=== PATIENT | male | born 1960 | race Caucasian/White ===

== ENCOUNTER 2017-07-21 05:50 | Day surgery (SDC) | payer BC ==
[~2017-07-21] VITALS: Ht 193 cm; Wt 113.4 kg
[2017-07-21] MEDS ORDERED: LIDOCAINE/EPI 1% 1:100000 20 ML VIAL INJ ONE (05:51)
[2017-07-21] MEDS ORDERED: CEFAZOLIN 1 GM IVPB PREMIX 50 ML IV ONE (05:51)
[2017-07-21] MEDS ORDERED: KETOROLAC TROMETHAMINE 30 MG VIAL IVP ONE (05:51)
[2017-07-21] MEDS ORDERED: BACITRACIN ZINC 15 GM TOPICAL OINTMENT TP ONE (05:51)
[2017-07-21] MEDS ORDERED: KETAMINE HCL 500 MG/10 ML VIAL IVP ONE (05:51)
[2017-07-21] MEDS ORDERED: MIDAZOLAM HCL 5 MG/ML VIAL (VERSED) IV ONE (05:51)
[2017-07-21] MEDS ORDERED: KETAMINE HCL 500 MG/10 ML VIAL ONE (07:34)
[2017-07-21] MEDS ORDERED: LR 1,000 ML IV ONE (08:12)
[2017-07-21] MEDS ORDERED: ONDANSETRON HCL 4 MG/2 ML VIAL IVP PRN ×2 (08:15)
[2017-07-21] MEDS ORDERED: fentaNYL CITRATE/PF 100 MCG/2 ML AMP IVP PRN (08:15)
[2017-07-21] MEDS ORDERED: DIPHENHYDRAMINE INJ 50 MG/ML VIAL IVP PRN (08:15)
[2017-07-21] MEDS ORDERED: NALBUPHINE HCL 10 MG/ML AMP IVP PRN (08:15)
[2017-07-21] MEDS ORDERED: ePHEDrine sulfate 50 MG/ML VIAL IVP PRN (08:15)
[2017-07-21] MEDS ORDERED: NALOXONE HCL 0.4 MG/ML AMP (NARCAN) IVP PRN (08:15)
[2017-07-21] MEDS ORDERED: ACETAMINOPHEN/CODEINE 300 MG-30 MG TABLET PO PRN (08:45)
[2017-07-21 09:16] VITALS: BP_SYST 126
== END 2017-07-21 09:40 | disposition home or self-care (01) ==
LOC: SDS 05:50
PROVIDERS: ATTEND Otolaryngology Plastic Surgery within the Head & Neck
DX: C44.41 Basal cell carcinoma of skin of scalp and neck (principal); E03.9 Hypothyroidism, unspecified; Z79.899 Other long term (current) drug therapy
CPT/HCPCS: 11623; 15220; 88305; J0690; J1885; J2250; J7120